=== PATIENT | female | born 1955 | race Caucasian/White ===

== ENCOUNTER → 2020-07-30 | Outpatient (CLI) | payer MEDICARE, OTHER ==
--- NOTE | 2020-07-31 06:56 | US ---
EXAMINATION TYPE: US kidneys/renal and bladder DATE OF EXAM: 07/30/2020 COMPARISON: NONE CLINICAL HISTORY: Chronic UTI N39.0. Chronic UTI. Right kidney smaller than left kidney per patient. Hx stones. Patient claims she had a procedure on right kidney in the past, but is unsure of what proc edure. EXAM MEASUREMENTS: Right Kidney: 7.9 x 3.5 x 3.8 cm Left Kidney: 13.0 x 5.9 x 5.4 cm Right Kidney: Measures small. Indistinct borders/Appears to have an abnormal contour. Appears heterog eneous. Hyperechoic area seen measuring 0.8 x 0.8 x 0.4 cm. Left Kidney: Appears enlarged. Hypoechoic connecting areas seen, appear to be possible dilated collec ting system? Largest measures 3.5 x 1.3 x 1.1 cm. Bladder: Wall measures 0.53 cm. Bilateral Jets seen: Left jet seen. Possible right jet seen. Right kidney is small in size with cortical thinning. Technologist shi 8 x 4 mm nonshadowing linear hyperechoic focus. Central pelvis shows fullness and is not completely anechoic. Left kidney shows improved cortical medullary differentiation. There is some elongated fullness mid t o lower pole level. Bladder poorly distended and thus suboptimally evaluated. IMPRESSION: Abnormal study. Suspect asymmetric atrophy and diminished function to right Kidney. Suspe ct mild to moderate right-sided hydronephrosis with possible internal collecting system debris or mas s. Possible mild pyelocaliectasis lower pole left kidney, consider duplicated collecting system. Advi se further investigation with functional nuclear medicine study or multiphase contrast-enhanced CT.
== END | disposition home or self-care (01) ==
LOC: RADUSWWP 16:55
PROVIDERS: ATTEND Family Medicine
DX: R93.5 Abnormal findings on diagnostic imaging of other abdominal regions, including retroperitoneum (principal); N39.0 Urinary tract infection, site not specified
CPT/HCPCS: 76770

== ENCOUNTER → 2020-09-18 | Outpatient (CLI) | payer MEDICARE, OTHER ==
[2020-09-18 13:16] LABS: African American GFR (CKD) >90 (>60 ml/min/1.73 sqM); Blood Urea Nitrogen 16 mg/dL (7-17); Non-African American GFR(CKD) 79 (>60 ml/min/1.73 sqM)
--- NOTE | 2020-09-18 13:56 | CT ---
EXAMINATION TYPE: CT abdomen wo/w con DATE OF EXAM: 09/18/2020 COMPARISON: Ultrasound 07/30/2020 HISTORY: frequent UTIs, abn US CT DLP: 2972.4 mGycm Automated exposure control for dose reduction was used. TECHNIQUE: Helical acquisition of images was performed from the lung bases through the top of iliac crest to include entire abdomen. CONTRAST: Performed with Oral Contrast and without and with IV Contrast, patient injected with 100 mL of Isovue 300. FINDINGS: LUNG BASES: Postcholecystectomy changes noted. LIVER/GB: No significant abnormality is appreciated. PANCREAS: No significant abnormality is seen. SPLEEN: No significant abnormality is seen. ADRENALS: No significant abnormality is seen. KIDNEYS: Right kidney is atrophic with cortical loss and a 3 mm lower pole calcification. No hydronep hrosis. No solid or cystic renal mass.. BOWEL: No significant abnormality is seen. LYMPH NODES: No significant abnormality is seen. OSSEOUS STRUCTURES: Hypertrophic and degenerative change of the spine. Chronic appearing compression superior endplate fracture L1. FREE AIR: No free air is visualized. OTHER: Aorta of normal caliber. Mild atherosclerotic change. IMPRESSION: 1. ATROPHY AND CORTICAL LOSS WITH NONOBSTRUCTING RIGHT RENAL CALCULUS. NO EVIDENCE OF RENAL MASS. COR RELATE FOR CHRONIC MEDICAL RENAL DISEASE. 2. POST CHOLECYSTECTOMY.
== END | disposition home or self-care (01) ==
LOC: RADCTMAIN 12:32
PROVIDERS: ATTEND Family Medicine
DX: N26.1 Atrophy of kidney (terminal) (principal); N20.0 Calculus of kidney; Z90.49 Acquired absence of other specified parts of digestive tract
CPT/HCPCS: 82565; 84520; 74170; 36415; Q9967

== ENCOUNTER → 2022-02-12 | Outpatient (CLI) | payer MEDICARE, OTHER | END | disposition home or self-care (01) | LOC: LABPAT 13:36 | PROVIDERS: ATTEND Urology | DX: Z01.812 Encounter for preprocedural laboratory examination (principal); N20.0 Calculus of kidney | CPT/HCPCS: 87086 ==

== ENCOUNTER 2022-02-19 05:59 | Day surgery (SDC) | payer MEDICARE, OTHER ==
[2022-02-18 13:14] VITALS: BMI 44.9
--- NOTE | 2022-02-19 06:38 | P.GSHP ---
History of Present Illness H&P Date: 02/19/22 Chief Complaint: Flank pain The patient is a 66-year-old white female with a history of urolithiasis. She was hospitalized in October with a UTI. She was readmitted earlier this month for treatment of a pansensitive E. coli UTI. CT scan shows an 8x13 mm left renal pelvic calculus with minimal hydronephrosis, though some fat stranding was seen around the left kidney suggestive of inflammation. She reports persistent pain despite resolution of the UTI. She continues to take ciprofloxacin. She was offered the options of observation, extracorporal shockwave lithotripsy (ESWL), and ureteroscopy with laser lithotripsy. She has elected to undergo the latter and comes for this reason. - Constitutional Constitutional: Denies chills, Denies fever - Gastrointestinal Gastrointestinal: Denies nausea, Denies vomiting - Genitourinary (Female) Genitourinary: Reports flank pain, Reports kidney stones Past Medical History Past Medical History: Eye Disorder, Hyperlipidemia, Hypertension, Sleep Apnea/CPAP/BIPAP Additional Past Medical History / Comment(s): Recent fall, has stitches in head. Kidney stones hx of and currently. No CPAP use. History of Any Multi-Drug Resistant Organisms: None Reported Past Surgical History: Section, Cholecystectomy, Hysterectomy Additional Past Surgical History / Comment(s): Procedure for right kidney stone. Section X2. Past Anesthesia/Blood Transfusion Reactions: No Reported Reaction Past Psychological History: Anxiety, Depression Smoking Status: Never smoker Past Alcohol Use History: None Reported Past Drug Use History: None Reported - Past Family History Mother Family Medical History: Cancer Son(s) Family Medical History: Pulmonary Embolus Additional Family Medical History / Comment(s): "Blood clots in lungs from Cov id." Medications and Allergies Home Medications Medication Instructions Recorded Confirmed Type Atorvastatin [Lipitor] 10 mg PO DAILY 02/18/22 02/18/22 History Cipro (Dose Unknown) 1 tab PO BID 02/18/22 02/18/22 History Ibuprofen 800 mg PO Q8H PRN 02/18/22 02/18/22 History Latanoprost/Pf [Latanoprost 0.005% 1 drop BOTH EYES HS 02/18/22 02/18/22 History Eye Drop] [place] (Dose Unknown) 1 tab PO DIRECTED PRN 02/18/22 02/18/22 History PARoxetine HCL [Paxil] 40 mg PO QAM 02/18/22 02/18/22 History Vitamin D3 (Dose Unknown) 1 tab PO DAILY 02/18/22 History atenoloL [Tenormin] 50 mg PO QAM 02/18/22 02/18/22 History clonazePAM [KlonoPIN] 1 mg PO TID PRN 02/18/22 02/18/22 History Allergies Allergy/AdvReac Type Severity Reaction Status Date / Time sulfamethoxazole Allergy Vomiting Verified 02/18/22 12:53 [From Bactrim] trimethoprim [From Bactrim] Allergy Vomiting Verified 02/18/22 12:53 Surgical - Exam - General well developed, well nourished, no distress - Neck no masses, trachea midline - Respiratory normal respiratory effort - Abdomen Abdomen: soft, non tender, no guarding, no rigid, no rebound - Psychiatric oriented to time, oriented to person, oriented to place, speech is normal, memory intact Results - Imaging CT scan - abdomen: report reviewed, image reviewed Assessment and Plan (1) Calculus of kidney Current Visit: Yes Status: Acute Code(s): N20.0 - CALCULUS OF KIDNEY SNOMED Code(s): 89167744 Plan: Cystoscopy, left ureteroscopy with Holmium laser lithotripsy and possible stone basketing, left ureteral stent insertion. The procedure has been reviewed in detail with the patient and her son. They have been made aware of potential risks, including anesthesia, bleeding, infection, and ureteral injury.
[2022-02-19] MEDS ORDERED: LACTATED RINGERS 1,000 ML IV ONE ×2 (06:47→08:50)
--- NOTE | 2022-02-19 06:50 | XR ---
EXAMINATION TYPE: XR KUB DATE OF EXAM: 02/19/2022 COMPARISON: 04/12/2014 HISTORY: Renal calculus TECHNIQUE: Renal view FINDINGS: There is 12 mm calculus over the left renal hilum. PATTERN is not acute. There is also smal ler 4 mm calculus over the right kidney. IMPRESSION: Large left renal calculus. Small right renal calculus. Nonacute bowel gas pattern.
[2022-02-19] MEDS ORDERED: MIDAZOLAM 2 MG/2 ML VIAL ONE (07:32)
[2022-02-19] MEDS ORDERED: SUCCINYLCHOLINE CHLORIDE 200 MG/10 ML VIAL IV ONE (07:32)
[2022-02-19] MEDS ORDERED: LIDOCAINE 2% INJ 20 MG/ML (2 ML VIAL) ONE (07:32)
[2022-02-19] MEDS ORDERED: PROPOFOL 10 MG/ML 20 ML VIAL IV ONE (07:32)
[2022-02-19] MEDS ORDERED: GLYCOPYRROLATE 0.2 MG/ML 2 ML VIAL ONE (07:32)
[2022-02-19] MEDS ORDERED: ePHEDrine 50 MG/ML 1 ML VIAL ONE (07:32)
[2022-02-19] MEDS ORDERED: fentaNYL (PF) 50 MCG/ML 2 ML AMP ONE (07:32)
[2022-02-19] MEDS ORDERED: ONDANSETRON 4 MG/2 ML VIAL ONE (07:33)
[2022-02-19] MEDS ORDERED: DEXAMETHASONE SOD PHOSPHATE 4 MG/ML 1 ML VIAL IVP ONE (07:37)
[2022-02-19] MEDS ORDERED: ONDANSETRON 4 MG/2 ML VIAL IVP ONE ×2 (07:37)
[2022-02-19 09:16] VITALS: RESP 16; TEMP 97.5
[2022-02-19] MEDS ORDERED: KETOROLAC 15 MG/ML 1 ML VIAL IVP ONE (09:20)
--- NOTE | 2022-02-19 09:27 | P.OP ---
Date of Procedure: 02/19/22 Preoperative Diagnosis: Left Renal Calculus Postoperative Diagnosis: Same Procedure(s) Performed: Cystoscopy, left ureteroscopy with Holmium laser lithotripsy and stone basketing, left ureteral stent insertion Anesthesia: VIDHI Surgeon: Garett Lemos Estimated Blood Loss (ml): 5 IV fluids (ml): 1,000 Pathology: other (Calculus fragments, sent for chemical analysis) Condition: stable Disposition: PACU Indications for Procedure: The patient is a 66-year-old white female with a history of urolithiasis. She was hospitalized in October with a UTI. She was readmitted earlier this month for treatment of a pansensitive E. coli UTI. CT scan shows an 8x13 mm left renal pelvic calculus with minimal hydronephrosis, though some fat stranding was seen around the left kidney suggestive of inflammation. She reports persistent pain despite resolution of the UTI. She continues to take ciprofloxacin. She was offered the options of observation, extracorporal shockwave lithotripsy (ESWL), and ureteroscopy with laser lithotripsy. She has elected to undergo the latter and comes for this reason. Operative Findings: Left renal pelvic calculus, fragmented completely. Description of Procedure: The patient was taken to the operating room and placed in the dorsolithotomy position, with legs supported in Francis stirrups. The external genitalia was prepped and draped sterilely. The 30 lens was used to introduce the 21-Icelandic Dorsey cystoscopic sheath through the urethra and into the bladder under direct vision. The bladder was examined in its entirety. Both ureteral orifices were normal anatomic location and configuration, and clear urine effluxed from both. No tumors or foreign bodies were seen. A 0.035 inch Glidewire was passed through the cystoscope. The left ureteral orifice was cannulated, and the Glidewire was advanced up to the renal pelvis. The cystoscope was removed, and an 11/13-Icelandic ureteral access catheter was passed over the wire, up to the proximal ureter. The flexible ureteroscope was then passed through the ureteral access catheter sheath and advanced under direct vision up to the left renal pelvis. The calculus was visualized. It did not appear dense. The 272 micron Holmium laser probe was passed through the ureteroscope, and lithotripsy was performed. Dusting mode was utilized, though some pieces broke away and refluxed into an upper pole calyx. After dusting the calculus completely, the ureteroscope was advanced into the upper pole calyx were some calculus fragments resided. These were fragmented using a popcorning mode. This was done until t here were no calculus fragments exceeding the size of the laser fiber tip. Other calyces were examined and no calculus fragments were seen elsewhere. As the ureteroscope was withdrawn, several calculus fragments were seen within the proximal ureter. These were removed using a 1.9-Icelandic nitinol basket. They measured no more than 1 mm in size and were sent for chemical analysis. There was no evidence of ureteral trauma. After removing the ureteroscope, the Glidewire was passed through the ureteral access catheter sheath, which was removed. The Glidewire was backloaded into the cystoscope, which was passed into the bladder. A 24 cm, 6-Icelandic double-J ureteral stent was placed over the wire. Proper stent positioning was verified fluoroscopically and endoscopically. The bladder was emptied and the cystoscope removed. The patient tolerated the procedure well and was taken to the recovery room in stable condition. [facility] [place] [facility] Report: Procedure Acuity: Elective Stone Size and Location: 8 x 13 mm, left renal pelvis Ureteral Dilation: No Ureteral Access Sheath Used: Yes Stone Sent for Analysis: Yes All Stones/Fragments Were Removed with a Basket: No Complications: No Preoperative Antibiotics Given: Yes Stent Placed: Yes If Stent Placed, Was String Left Attached: No If Stent Placed, When is it to be Removed: 3 weeks Discharge Medications: Toradol, tamsulosin
[2022-02-19 10:06] VITALS: BP 133/65; PULSE 91
--- NOTE | 2022-02-19 13:31 | FL ---
EXAMINATION TYPE: FL guidance operating room DATE OF EXAM: 02/19/2022 FLUOROSCOPY Fluoroscopy time of 33 seconds was used during urologic intervention for left renal stone and stent p lacement. 2 image/s document/s the procedure.
== END 2022-02-19 10:37 | disposition home or self-care (01) ==
LOC: OR 05:59
PROVIDERS: ATTEND Urology
DX: N20.0 Calculus of kidney (principal); E78.5 Hyperlipidemia, unspecified; I10 Essential (primary) hypertension; G47.30 Sleep apnea, unspecified; H57.9 Unspecified disorder of eye and adnexa; Z86.73 Personal history of transient ischemic attack (TIA), and cerebral infarction without residual deficits; Z91.81 History of falling; Z87.442 Personal history of urinary calculi; F41.9 Anxiety disorder, unspecified; F32.A Depression, unspecified; Z82.49 Family history of ischemic heart disease and other diseases of the circulatory system; E66.9 Obesity, unspecified; Z68.42 Body mass index [BMI] 45.0-49.9, adult; Z98.891 History of uterine scar from previous surgery; Z90.49 Acquired absence of other specified parts of digestive tract; Z98.890 Other specified postprocedural states; Z97.2 Presence of dental prosthetic device (complete) (partial); Z79.899 Other long term (current) drug therapy; Z88.1 Allergy status to other antibiotic agents; Z88.2 Allergy status to sulfonamides
CPT/HCPCS: 82365; 74018; 52332; C2625; C1769; J2250; J0330; J1100; J0690; J2405; J3010; J1885; J2704; J2001